=== PATIENT | female | born 1985 | race Caucasian/White ===

== ENCOUNTER 2016-10-02 12:00 | Emergency (ER) | payer SELFPAY ==
[2016-10-02] MEDS ORDERED: ATIVAN ONE (12:06)
[2016-10-02] MEDS ORDERED: ATIVAN IV ONE (12:11)
[2016-10-02] MEDS ORDERED: ZOFRAN IV ONE (12:21)
[2016-10-02] MEDS ORDERED: KEPPRA 1,000 MG/NS 0.75% 100ML 1,000 MG/100 ML BAG IV ONE (14:14)
[2016-10-02] MEDS ORDERED: ULTRAM ONE (14:34)
--- NOTE | 2016-10-02 14:40 | Emergency Department Report ---
HPI - General Chief Complaint: Seizure Time Seen by Provider: 10/02/16 14:11 - HPI HPI: Chief complaint: Seizure HPI: Patient is a 31-year-old female with history of seizure disorder. Patient states she had a seizure yesterday and was seen at another hospital and given IV Dilantin and Keppra. Patient has not refilled her medications. Patient is on 750 Keppra twice a day and 300 mg of Dilantin daily. Patient complains of left mandibular pain. Previous admissions to the ER patient had TMJ dislocations that resolved spontaneously with sedation and would re-dislocate upon awakening. There has been no dislocation today Mode of arrival: [private car] Source: [Patient] [old chart] Began: According to the nursing notes seizing in the car and brought in and given Ativan with discontinuation of the seizure. Possible repeat seizure just prior to my evaluation the patient is not post ictal so I doubt that she had another seizure. Nurse states she heard the stretcher rattling. Duration: Unable to assess Context: See above Quality: Dull pain to the jaw Severity: 10 out of 10 Improved with: Ativan Worsened with: Not taking her medications Associated signs and symptoms: Denies fever, nausea, vomiting, dysuria. 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 x4 - Social History Smoking Status: Current Every Day Smoker Substance Use Type: Alcohol - Medications Home Medications: Home Medications Medication Instructions Recorded Confirmed Last Taken Type levETIRAcetam [Keppra TAB] 750 mg PO BID 08/11/15 10/02/16 10/01/16 History Phenytoin [Dilantin] 300 mg PO QHS 02/16/16 10/02/16 10/01/16 History ED Review of Systems ROS: Stated complaint: SEIZURE Other details as noted in HPI ROS Constitutional: No fever ENT: No uri symptoms Cardiovascular: No chest pain Respiratory: No sob or cough GI: No nausea vomiting or diarrhea : No dysuria frequency or urgency, Skin: No rash Neuro: No focal weakness or numbness Psych: No depression Ilya/lymph: No edema Physical Exam - Physical Exam Vital Signs: Vital Signs 10/02/16 12:00 Temperature 98.3 F Pulse Rate 93 H Blood Pressure 104/54 O2 Sat by Pulse 100 Oximetry Physical Exam: GENERAL: The patient is well-developed well-nourished . HEENT: Normocephalic. Atraumatic. Extraocular motions are intact. Patient has moist mucous membranes. There does not appear to be any trauma to the patient's mouth and no erythema or swelling. Full range of motion of patient's TMJ NECK: Supple. No meningitic signs are noted. There is no adenopathy noted. CHEST/LUNGS: Clear to auscultation. There is no respiratory distress noted. HEART/CARDIOVASCULAR: Regular. There is no tachycardia. There is no gallop rub or murmur. ABDOMEN: Abdomen is soft, nontender. Patient has normal bowel sounds. There is no abdominal distention. SKIN: There is no rash. There is no edema. There is no diaphoresis. NEURO: The patient is awake, alert, and oriented. The patient is cooperative. The patient has no focal neurologic deficits. The patient has normal speech. MUSCULOSKELETAL: There is no tenderness or deformity. There is no limitation range of motion. There is no evidence of acute injury. ED Course Vital Signs 10/02/16 12:00 Temperature 98.3 F Pulse Rate 93 H Blood Pressure 104/54 O2 Sat by Pulse 100 Oximetry - Reevaluation(s) Reevaluation #1: 10/02/16 14:40 Patient will be given a gram of Keppra IV and 300 mg of Dilantin by mouth. Patient will be encouraged to fill her prescriptions and take her medications. ED Medical Decision Making - Lab Data Laboratory Tests 10/02/16 12:35 Phenytoin 7.4 L Critical care attestation.: If time is entered above; I have spent that time in minutes in the direct care of this critically ill patient, excluding procedure time. ED Disposition Clinical Impression: Seizure Disposition: DISCHARGED TO HOME OR SELFCARE Is pt being admited?: No Does the pt Need Aspirin: No Condition: Stable Instructions: Epilepsy (ED) Referrals: PRIMARY CARE, [Primary Care Provider] - 3-5 Days Time of Disposition: 14:42
[2016-10-02] MEDS ORDERED: DILANTIN ONE (14:43)
[2016-10-02] MEDS ORDERED: BENADRYL PO ONE ×2 (14:44→15:15)
[2016-10-02] MEDS ORDERED: DILANTIN PO ONE (14:45)
[2016-10-02 15:07] VITALS: BP 111/78
[2016-10-02] MEDS ORDERED: ULTRAM PO ONE (15:14)
== END 2016-10-02 15:10 | disposition home or self-care (01) ==
LOC: ED 12:00
DX: R56.9 Unspecified convulsions (principal); F17.200 Nicotine dependence, unspecified, uncomplicated
CPT/HCPCS: 36415; 80177; 80185; 96365; 96375; 99284; J1953; J2060

== ENCOUNTER 2017-07-31 09:58 | Emergency (ER) | payer OTHER ==
[2017-07-31] MEDS ORDERED: ATIVAN ONE (10:14)
[2017-07-31] MEDS ORDERED: FIORICET PO ONE (10:19)
--- NOTE | 2017-07-31 10:24 | Emergency Department Report ---
HPI - General Time Seen by Provider: 07/31/17 10:12 - HPI HPI: Room 19 The patient is a 31-year-old female presenting with a chief complaint of seizure. The patient states she's had a toothache for the past 2-3 days ( approximately tooth #3). The patient states she has appointment to see her dentist 08/20/2016. The patient states she was told she had a seizure approximately 10 minutes prior to arrival. The patient states she ran out of her Keppra 2 weeks ago but she has been taking her Dilantin. 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 x4 - Family History Family history: no significant - Social History Smoking Status: Current Every Day Smoker (1/2 pack per day) Substance Use Type: None (denies illicit drug use) - Medications Home Medications: Home Medications Medication Instructions Recorded Confirmed Last Taken Type Butalb/Acetamin/Caff 50-325-40 2 tab PO Q8H #10 tablet 07/31/17 Unknown Rx [Fioricet] Phenytoin [Dilantin] 300 mg PO QHS #90 capsule.er 07/31/17 Unknown Rx levETIRAcetam [Keppra TAB] 750 mg PO BID #60 tablet 07/31/17 Unknown Rx ED Review of Systems ROS: Stated complaint: SEIZURES Other details as noted in HPI ENT: dental pain Neurological: other (seizure) Physical Exam - Physical Exam Physical Exam: GENERAL: The patient is well-developed well-nourished female lying on stretcher having pseudoseizure. Patient shaking arms and legs but stops and answer questions when distracted HEENT: Normocephalic. Atraumatic. Extraocular motions are intact. Broken appearance of tooth #3 without surrounding edema or discharge NECK: Supple. Trachea midline CHEST/LUNGS: Clear to auscultation. There is no respiratory distress noted. HEART/CARDIOVASCULAR: Regular. There is no tachycardia. There is no gallop rub or murmur. ABDOMEN: Abdomen is soft, nontender. Patient has normal bowel sounds. There is no abdominal distention. SKIN: There is no rash. There is no edema. There is no diaphoresis. NEURO: The patient is awake, alert, and oriented. The patient is cooperative. The patient has no focal neurologic deficits. The patient has normal speech. Cranial nerves II through XII grossly intact, no drift MUSCULOSKELETAL: There is no evidence of acute injury. ED Medical Decision Making - Lab Data Result diagrams: 07/31/17 10:23 Laboratory Tests 07/31/17 07/31/17 07/31/17 10:23 10:23 10:23 Sodium 140 Potassium 4.2 Chloride 102.6 Carbon Dioxide 20 L Anion Gap 22 BUN 18 H Creatinine 0.7 Estimated GFR > 60 BUN/Creatinine Ratio 26 Glucose 99 Calcium 9.0 Magnesium 2.00 HCG, Qual Negative Phenytoin 0.8 L - Differential Diagnosis dental pain, seizures, pseudoseizures Critical care attestation.: If time is entered above; I have spent that time in minutes in the direct care of this critically ill patient, excluding procedure time. ED Disposition Clinical Impression: Pain, dental, Epilepsy, Subtherapeutic serum dilantin level Disposition: - TO HOME OR SELFCARE Is pt being admited?: No Does the pt Need Aspirin: No Condition: Stable Instructions: Toothache (ED) Additional Instructions: Return to the emergency department immediately should you develop worsening symptoms, fever, inability to tolerate food or liquid or any other concerns. Prescriptions: Butalb/Acetamin/Caff 50-325-40 [Fioricet] 2 tab PO Q8H #10 tablet levETIRAcetam [Keppra TAB] 750 mg PO BID #60 tablet Phenytoin [Dilantin] 300 mg PO QHS #90 capsule.er Referrals: MARIIA SUERO MD [Primary Care Provider] - 3-5 Days HUMBERTO LINARES MD [Staff Physician] - 3-5 Days [facility] [Outside] - [place] Time of Disposition: 11:37
[2017-07-31 10:40] VITALS: BP 138/69
[2017-07-31 11:03] LABS: BUN/Creatinine Ratio 26; Blood Urea Nitrogen 18 mg/dL (7-17); Hemolysis Index 3
[2017-07-31] MEDS ORDERED: DILANTIN PO ONE (11:35)
[2017-07-31] MEDS ORDERED: ZOFRAN ODT PO ONE (11:36)
== END 2017-07-31 12:48 | disposition home or self-care (01) ==
LOC: ED 09:58
DX: G40.909 Epilepsy, unspecified, not intractable, without status epilepticus (principal); K08.89 Other specified disorders of teeth and supporting structures; R79.1 Abnormal coagulation profile; F17.200 Nicotine dependence, unspecified, uncomplicated
CPT/HCPCS: 36415; 80048; 80185; 83735; 84703; 99283; J2060; Q0162

== ENCOUNTER 2017-09-07 08:37 | Emergency (ER) | payer SELFPAY ==
[2017-09-07] MEDS ORDERED: KEPPRA 1,000 MG/NS 0.75% 100ML 1,000 MG/100 ML BAG IV ONE (08:49)
--- NOTE | 2017-09-07 08:50 | Emergency Department Report ---
ED Seizure HPI - General Chief Complaint: Seizure Stated Complaint: SEIZURE Time Seen by Provider: 09/07/17 08:48 Source: patient, RN notes reviewed, old records reviewed Limitations: No Limitations - History of Present Illness Initial Comments: This is a 32-year-old female, the patient is previously unknown to this provider , patient has a past medical history of seizure disorder, dentalgia, as per old medical records supposed to be on Keppra, 750 mg twice daily, Dilantin, 300 mg each night. Patient reports compliance with her medications. She is brought to the hospital in private vehicle with friends and family for breakthrough seizure. It has since resolved. Patient has mild headache which is throbbing, global, not sudden or thunderclap in nature, not maximal in intensity, not the worse headache of her life. Patient reports that she only gets headaches when she has a seizure. She also complains of subacute dentalgia, over tooth #1, 2, and most of the maxillary teeth. Patient reports having had this pain for a while, she went and saw a dentist, had a dental extraction recommended, and indicated she cannot afford the copayment. Her symptoms/seizure have resolved. She denies chest pain, abdominal pain, shortness of breath, weakness, numbness, ataxia, urinary symptoms. MD Complaint: seizure -: Sudden Description of Episode: loss of consciousness, tonic-clonic movement -: second(s) Witnessed:: Yes Trauma: No Seizure History: known seizure disorder Place: home Possible Precipitating Event: none, fever Associated Symptoms: denies: chest pain, confusion, cough, diaphoresis, fever/ chills, loss of appetite, malaise, rash, shortness of breath, syncope, weakness , tongue injury, shoulder dislocation - Related Data Previous Rx's Medication Instructions Recorded Last Taken Type Butalb/Acetamin/Caff 50-325-40 2 tab PO Q8H #10 tablet 07/31/17 Unknown Rx [Fioricet] Phenytoin [Dilantin] 300 mg PO QHS #90 capsule.er 07/31/17 Unknown Rx Chlorhexidine Mouthwash [Peridex] 15 ml MM BID #1 bottle 09/07/17 Unknown Rx levETIRAcetam [Keppra TAB] 750 mg PO BID #60 tablet 09/07/17 Unknown Rx Allergies Allergy/AdvReac Type Severity Reaction Status Date / Time aspirin Allergy Swelling Verified 03/22/14 17:29 fosphenytoin sodium Allergy Itching Verified 03/22/14 17:29 [From Cerebyx] ED Review of Systems ROS: Stated complaint: SEIZURE Other details as noted in HPI ED Past Medical Hx - Past Medical History Hx Seizures: Yes 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 x4 - Social History Smoking Status: Current Every Day Smoker (1/2 pack per day) Substance Use Type: None (denies illicit drug use) - Medications Home Medications: Home Medications Medication Instructions Recorded Confirmed Last Taken Type Butalb/Acetamin/Caff 50-325-40 2 tab PO Q8H #10 tablet 07/31/17 Unknown Rx [Fioricet] Phenytoin [Dilantin] 300 mg PO QHS #90 capsule.er 07/31/17 Unknown Rx Chlorhexidine Mouthwash [Peridex] 15 ml MM BID #1 bottle 09/07/17 Unknown Rx levETIRAcetam [Keppra TAB] 750 mg PO BID #60 tablet 09/07/17 Unknown Rx ED Physical Exam - General General appearance: alert, in no apparent distress - Head Head exam: Present: atraumatic, normocephalic - Eye Eye exam: Present: normal appearance, PERRL, EOMI. Absent: nystagmus - ENT ENT exam: Present: normal exam, normal orophraynx, mucous membranes moist, normal external ear exam, other (poor dentition. No stridor or dysphonia no abscesses noted) - Neck Neck exam: Present: normal inspection, full ROM - Respiratory Respiratory exam: Present: normal lung sounds bilaterally. Absent: respiratory distress - Cardiovascular Cardiovascular Exam: Present: regular rate, normal rhythm, normal heart sounds. Absent: systolic murmur, diastolic murmur, rubs, gallop - GI/Abdominal GI/Abdominal exam: Present: soft, normal bowel sounds. Absent: distended, tenderness, guarding, rebound, rigid, pulsatile mass - Extremities Exam Extremities exam: Present: normal inspection, full ROM, normal capillary refill. Absent: pedal edema, joint swelling, calf tenderness - Back Exam Back exam: Present: normal inspection, full ROM. Absent: tenderness, CVA tenderness (R), paraspinal tenderness - Neurological Exam Neurological exam: Present: alert, oriented X3, CN II-XII intact, normal gait, other (Extraocular movements intact. Tongue midline. No facial droop. Facial sensation intact to light touch in the V1, V2, V3 distribution bilaterally. 5 and 5 strength in 4 extremities.. Sensation is intact to light touch in 4 extremities.). Absent: motor sensory deficit - Psychiatric Psychiatric exam: Present: anxious - Skin Skin exam: Present: warm, dry, intact, normal color. Absent: rash ED Course Vital Signs 09/07/17 09:05 Pulse Rate 73 Respiratory 19 Rate Blood Pressure 114/73 O2 Sat by Pulse 100 Oximetry ED Medical Decision Making - Lab Data Vital Signs 09/07/17 09:05 Pulse Rate 73 Respiratory 19 Rate Blood Pressure 114/73 O2 Sat by Pulse 100 Oximetry - Medical Decision Making Differential diagnosis, including but not limited to: Dentalgia, breakthrough seizure, medication noncompliance Assessment and plan: 32-year-old female with breakthrough seizure, now clinically sober, with chronic dentalgia, has a GCS of 15, with an NIH score of 0. This provider recommended laboratory studies, IV bolus of Keppra. Patient is declining. Patient is going to sign out AGAINST MEDICAL ADVICE. Risks of leaving, including , disability, paralysis, permanent loss of quality of life were reviewed with the patient who verbalized understanding, and understands that she can return to the ER right away if and when she changes her mind. Patient will be given chlorhexidine for her dentalgia, she will be given a list of low-cost dental clinics in the state, her Keppra prescription will be refilled, conversation for discharge AGAINST MEDICAL ADVICE witnessed by RN Lita Dorsey. Patient understands that she can return to the ER right away if and when she changes her mind. Patient further endorses that she is not . Critical care attestation.: If time is entered above; I have spent that time in minutes in the direct care of this critically ill patient, excluding procedure time. ED Disposition Clinical Impression: History of seizure, Dentalgia Disposition: LEFT AGAINST MED ADVICE Is pt being admited?: No Does the pt Need Aspirin: No Condition: Undetermined Instructions: Recurrent Seizures Adult (ED) Additional Instructions: As we discussed, you have left the hospital/emergency room AGAINST MEDICAL ADVICE. By leaving, you risked , disability, paralysis, permanent loss of quality of life. The ER is open 24 hours a day, 7 days a week. It never closes. Please return to the emergency room right away if and when you change your mind. If you decide not to return to the emergency room, please follow-up with the listed physician referrals as soon as possible. Do not drive her car or operate motor vehicles and was cleared to do so by a primary care doctor or neurology specialist. Referrals: PRIMARY MD IVANNA [Primary Care Provider] - 3-5 Days ZOHREH ZALDIVAR MD [Referring] - 3-5 Days HUMBERTO LINARES MD [Staff Physician] - 3-5 Days [facility] [Outside] - 3-5 Days
[2017-09-07 09:09] VITALS: BP 114/73
[2017-09-07] MEDS ORDERED: KEPPRA PO ONE (09:22)
[2017-09-07 09:42] LABS: Bilirubin,Urine NEG (Negative); Blood,Urine MOD (Negative); Color,Urine Yellow (Yellow); Mucus,Urine FEW /HPF; Nitrite,Urine NEG (Negative); Protein,Urine <15 mg/dL mg/dL (Negative); Urobilinogen,Urine < 2.0 mg/dL (<2.0)
[2017-09-07 10:06] LABS: Amphetamine Screen,Urine PRESUMPTIVE NEGATIVE; Benzodiazepines Screen,Urine PRESUMPTIVE NEGATIVE; Cocaine Screen,Urine PRESUMPTIVE NEGATIVE; Methadone Screen,Urine PRESUMPTIVE NEGATIVE; Opiate Screen,Urine PRESUMPTIVE NEGATIVE
[2017-09-07 10:20] LABS: Cannabinoid Screen,Urine PRESUMPTIVE POSITIVE
== END 2017-09-07 09:50 | disposition left against medical advice (07) ==
LOC: ED 08:37
DX: K08.89 Other specified disorders of teeth and supporting structures (principal); G40.909 Epilepsy, unspecified, not intractable, without status epilepticus; F17.200 Nicotine dependence, unspecified, uncomplicated
CPT/HCPCS: 80307; 81001; 82962; 99283

== ENCOUNTER 2020-09-12 11:17 | Emergency (ER) | payer SELFPAY ==
--- NOTE | 2020-09-12 12:04 | Event Note ---
ED Screening Note Date of service: 09/12/20 Time: 12:01 ED Screening Note: 35-year-old female presents to the emergency room complaining of left shoulder left humerus and right index finger injury. Patient states that she had a seizure 2 days ago since she has been off of her antiseizure medicine for 1 month and 1 week. This initial assessment/diagnostic orders/clinical plan/treatment(s) is/are subject to change based on patients health status, clinical progression and re- assessment by fellow clinical providers in the ED. Further treatment and workup at subsequent clinical providers discretion. Patient/guardian urged not to elope from the ED as their condition may be serious if not clinically assessed and managed. Initial orders include:
--- NOTE | 2020-09-12 12:40 | XRay Report ---
Left shoulder-3 views Left humerus-4 views Left hand-2 views INDICATION: Left shoulder injury status post seizure. COMPARISON: None. IMPRESSION: No acute osseous or soft tissue abnormality in the left upper extremity. No significa nt DJD. Signer Name: Pravin Upton MD Signed: 09/12/2020 12:32 PM Workstation Name: [id number]
--- NOTE | 2020-09-12 12:40 | XRay Report ---
Left shoulder-3 views Left humerus-4 views Left hand-2 views INDICATION: Left shoulder injury status post seizure. COMPARISON: None. IMPRESSION: No acute osseous or soft tissue abnormality in the left upper extremity. No significa nt DJD. Signer Name: Pravin Upton MD Signed: 09/12/2020 12:32 PM Workstation Name: [id number]
--- NOTE | 2020-09-12 12:40 | XRay Report ---
Left shoulder-3 views Left humerus-4 views Left hand-2 views INDICATION: Left shoulder injury status post seizure. COMPARISON: None. IMPRESSION: No acute osseous or soft tissue abnormality in the left upper extremity. No significa nt DJD. Signer Name: Pravin Upton MD Signed: 09/12/2020 12:32 PM Workstation Name: [id number]
[2020-09-12 13:44] LABS: Basophils % (Auto) 0.4 % (0.0-1.8); Eosinophils # (Auto) 0.2 K/mm3 (0.0-0.4); Eosinophils % (Auto) 2.4 % (0.0-4.3); Hematocrit 34.5 % (30.3-42.9); Hemoglobin 11.7 gm/dl (10.1-14.3); Lymphocytes # (Auto) 1.9 K/mm3 (1.2-5.4); Lymphocytes % (Auto) 29.9 % (13.4-35.0); Mean Corpuscular HGB Conc 34 % (30-34); Mean Corpuscular Volume 93 fl (79-97); Monocytes # (Auto) 0.5 K/mm3 (0.0-0.8); Monocytes % (Auto) 8.3 % (0.0-7.3); Platelet Count 221 K/mm3 (140-440); Red Blood Count 3.73 M/mm3 (3.65-5.03); Red Cell Distribution Width 15.6 % (13.2-15.2)
[2020-09-12] MEDS ORDERED: levETIRAcetam 1000 MG/NS 0.75% 1,000 MG/100 ML BAG IV ONE (13:44)
[2020-09-12] MEDS ORDERED: MORPHINE 4 MG/1 ML INJ IV ONE (13:44)
[2020-09-12] MEDS ORDERED: ONDANSETRON 4 MG/2 ML INJ IV ONE (13:44)
--- NOTE | 2020-09-12 13:45 | Emergency Department Report ---
ED Seizure HPI - General Chief Complaint: Seizure Stated Complaint: SEZUIRE/LFT ARM PAIN/RT FINGER Time Seen by Provider: 09/12/20 13:40 Source: patient Mode of arrival: Ambulatory Limitations: No Limitations - History of Present Illness Initial Comments: Patient is 35 years old female with history of seizure. Patient stated that she is taking Keppra 750 mg and Dilantin 300 mg daily. Patient presented to the ER complaining of left shoulder pain and left hand pain after she had a seizure 2 days ago. Patient stated that she is out of her medication for the last week. Patient denied any head injury, neck injury, chest injury, abdominal injury or any other extremities injury. Patient also denied any fever or chills. MD Complaint: seizure -: days(s) (2) Description of Episode: loss of consciousness, tonic-clonic movement Witnessed:: Yes Trauma: Yes Seizure History: known seizure disorder Place: home Possible Precipitating Event: none Associated Symptoms: denies other symptoms Treatments Prior to Arrival: none - Related Data Previous Rx's Medication Instructions Recorded Last Taken Type Butalb/Acetamin/Caff 50-325-40 2 tab PO Q8H #10 tablet 07/31/17 Unknown Rx [Fioricet 50-325-40] Phenytoin [Dilantin] 300 mg PO QHS #90 capsule.er 07/31/17 Unknown Rx Chlorhexidine Mouthwash [Peridex] 15 ml MM BID #1 bottle 09/07/17 Unknown Rx levETIRAcetam [Keppra TAB] 750 mg PO BID #60 tablet 09/07/17 Unknown Rx Allergies Allergy/AdvReac Type Severity Reaction Status Date / Time aspirin Allergy Swelling Verified 03/22/14 17:29 fosphenytoin sodium Allergy Itching Verified 03/22/14 17:29 [From Cerebyx] ED Review of Systems ROS: Stated complaint: SEZUIRE/LFT ARM PAIN/RT FINGER Other details as noted in HPI Comment: All other systems reviewed and negative Constitutional: denies: chills, fever Cardiovascular: denies: chest pain Gastrointestinal: denies: abdominal pain Musculoskeletal: arthralgia, myalgia. 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 x4 - Social History Smoking Status: Current Every Day Smoker Substance Use Type: None - Medications Home Medications: Home Medications Medication Instructions Recorded Confirmed Last Taken Type Butalb/Acetamin/Caff 50-325-40 2 tab PO Q8H #10 tablet 07/31/17 Unknown Rx [Fioricet 50-325-40] Phenytoin [Dilantin] 300 mg PO QHS #90 capsule.er 07/31/17 Unknown Rx Chlorhexidine Mouthwash [Peridex] 15 ml MM BID #1 bottle 09/07/17 Unknown Rx levETIRAcetam [Keppra TAB] 750 mg PO BID #60 tablet 09/07/17 Unknown Rx ED Physical Exam - General Limitations: No Limitations General appearance: alert, in no apparent distress - Head Head exam: Present: atraumatic, normocephalic, normal inspection - Eye Eye exam: Present: normal appearance - ENT ENT exam: Present: normal exam, normal orophraynx, mucous membranes moist - Neck Neck exam: Present: normal inspection, full ROM. Absent: tenderness, meningismus, lymphadenopathy, thyromegaly - Respiratory Respiratory exam: Present: normal lung sounds bilaterally - Cardiovascular Cardiovascular Exam: Present: regular rate, normal rhythm, normal heart sounds - GI/Abdominal GI/Abdominal exam: Present: soft, normal bowel sounds. Absent: distended, tenderness, guarding, rebound, rigid, organomegaly, mass, bruit, pulsatile mass, hernia - Extremities Exam Extremities exam: Present: normal inspection, full ROM, tenderness, normal capillary refill. Absent: pedal edema, joint swelling, calf tenderness - Back Exam Back exam: Present: normal inspection, full ROM. Absent: CVA tenderness (R), CVA tenderness (L), paraspinal tenderness, vertebral tenderness - Neurological Exam Neurological exam: Present: alert, oriented X3, CN II-XII intact, normal gait, reflexes normal. Absent: motor sensory deficit - Psychiatric Psychiatric exam: Present: normal mood - Skin Skin exam: Present: warm, intact, normal color ED Course Vital Signs 09/12/20 11:55 Temperature 97.5 F L Pulse Rate 83 Respiratory 16 Rate Blood Pressure 138/93 O2 Sat by Pulse 100 Oximetry ED Medical Decision Making - Lab Data Result diagrams: 09/12/20 13:24 - Radiology Data Radiology results: report reviewed - Medical Decision Making Patient is 35 years old female with history of seizure. Patient stated that she is taking Keppra 750 mg and Dilantin 300 mg daily. Patient presented to the ER complaining of left shoulder pain and left hand pain after she had a seizure 2 days ago. Patient stated that she is out of her medication for the last week. Patient denied any head injury, neck injury, chest injury, abdominal injury or any other extremities injury. Patient also denied any fever or chills. Patient received 1 g of Keppra in the emergency room. Labs reviewed and is unremarkable. X-ray of the left shoulder and left hand showed no acute fracture or dislocation. Patient given prescription for Keppra and Dilantin and advised to follow-up with her neurologist in the next 2 to 3 days and to return to the ER if she develop any new symptoms. Critical care attestation.: If time is entered above; I have spent that time in minutes in the direct care of this critically ill patient, excluding procedure time. ED Disposition Clinical Impression: Seizure, Shoulder contusion Disposition: TO HOME OR SELFCARE Is pt being admited?: No Condition: Stable Instructions: Seizure, Adult, Contusion Referrals: PRIMARY CARE, [Referring] - 3-5 Days
[2020-09-12 14:02] LABS: Alanine Aminotransferase 13 units/L (7-56); Albumin 4.2 g/dL (3.9-5); BUN/Creatinine Ratio 14; Blood Urea Nitrogen 10 mg/dL (7-17); Calcium 8.9 mg/dL (8.4-10.2); Hemolysis Index 4
[2020-09-12] MEDS ORDERED: diphenhydrAMINE 50 MG/ML VIAL ONE (14:07)
[2020-09-12] MEDS ORDERED: diphenhydrAMINE 50 MG/ML VIAL IV ONE (14:08)
[2020-09-12] MEDS ORDERED: fentaNYL 250 MCG/5 ML INJ IV ONE ×2 (15:59→17:02)
[2020-09-12] MEDS ORDERED: fentaNYL 100 MCG/2 ML INJ IV SCH (16:00)
[2020-09-12 17:09] VITALS: BP 106/82
== END 2020-09-12 17:10 | disposition home or self-care (01) ==
LOC: ED 11:17
DX: S40.012A Contusion of left shoulder, initial encounter (principal); G43.909 Migraine, unspecified, not intractable, without status migrainosus; F17.200 Nicotine dependence, unspecified, uncomplicated; Z79.899 Other long term (current) drug therapy; Z88.6 Allergy status to analgesic agent; Z88.8 Allergy status to other drugs, medicaments and biological substances; X58.XXXA Exposure to other specified factors, initial encounter; Y93.89 Activity, other specified; Y92.89 Other specified places as the place of occurrence of the external cause; Y99.8 Other external cause status
CPT/HCPCS: 36415; 73030; 73060; 73120; 80053; 84702; 85025; 96374; 96375; 96376; 99283; J1200; J1953; J2270; J2405; J3010

== ENCOUNTER 2020-09-26 06:46 | Emergency (ER) | payer SELFPAY ==
[2020-09-26 06:59] VITALS: BP 116/65
--- NOTE | 2020-09-26 07:36 | Emergency Department Report ---
ED ENT HPI - General Chief complaint: Dental/Oral Stated complaint: TOOTHACHE Time Seen by Provider: 09/26/20 07:28 Source: patient Mode of arrival: Ambulatory Limitations: No Limitations - History of Present Illness Initial comments: 35-year-old male female presents emerged department complaining of a 2-day history of reemerging left upper molar dental pain which is worse with palpation and range of motion. She reports some sweats but no fever or chills reports no bleeding. There is some nausea and vomiting as well. Also has been scratching a sore throat as it is difficult to close her mouth due to the pain of the teeth touching MD complaint: tooth pain -: Gradual, days(s) (2) Location: tooth # Severity: mild, moderate Quality: dull Consistency: constant Worsens with: eating, movement Associated Symptoms: toothache - Related Data Previous Rx's Medication Instructions Recorded Last Taken Type Butalb/Acetamin/Caff 50-325-40 2 tab PO Q8H #10 tablet 07/31/17 Unknown Rx [Fioricet 50-325-40] Phenytoin [Dilantin] 300 mg PO QHS #90 capsule.er 07/31/17 Unknown Rx Chlorhexidine Mouthwash [Peridex] 15 ml MM BID #1 bottle 09/07/17 Unknown Rx levETIRAcetam [Keppra TAB] 750 mg PO BID #60 tablet 09/07/17 Unknown Rx Ondansetron [Zofran Odt] 4 mg PO Q8HR PRN #14 tab.rapdis 09/12/20 Unknown Rx Phenytoin [Dilantin] 300 mg PO QHS #60 capsule 09/12/20 Unknown Rx levETIRAcetam [Keppra TAB] 750 mg PO BID #120 tablet 09/12/20 Unknown Rx traMADoL [Ultram 50 MG tab] 50 mg PO Q4HR PRN #14 tablet 09/12/20 Unknown Rx Amoxicillin [Amoxicillin TAB] 875 mg PO BID #20 tablet 09/26/20 Unknown Rx Chlorhexidine Mouthwash [Peridex] 15 ml MM BID #1 bottle 09/26/20 Unknown Rx Lidocaine Viscous 2% 5 ml MM Q3H PRN #120 udc 09/26/20 Unknown Rx traMADoL [Ultram] 50 mg PO Q6HR PRN #20 tablet 09/26/20 Unknown Rx Allergies Allergy/AdvReac Type Severity Reaction Status Date / Time aspirin Allergy Swelling Verified 09/26/20 06:59 fosphenytoin sodium Allergy Itching Verified 09/26/20 06:59 [From Cerebyx] ED Dental HPI - General Chief complaint: Dental/Oral Stated complaint: TOOTHACHE Time Seen by Provider: 09/26/20 07:28 Source: patient Mode of arrival: Ambulatory Limitations: No Limitations - Related Data Previous Rx's Medication Instructions Recorded Last Taken Type Butalb/Acetamin/Caff 50-325-40 2 tab PO Q8H #10 tablet 07/31/17 Unknown Rx [Fioricet 50-325-40] Phenytoin [Dilantin] 300 mg PO QHS #90 capsule.er 07/31/17 Unknown Rx Chlorhexidine Mouthwash [Peridex] 15 ml MM BID #1 bottle 09/07/17 Unknown Rx levETIRAcetam [Keppra TAB] 750 mg PO BID #60 tablet 09/07/17 Unknown Rx Ondansetron [Zofran Odt] 4 mg PO Q8HR PRN #14 tab.rapdis 09/12/20 Unknown Rx Phenytoin [Dilantin] 300 mg PO QHS #60 capsule 09/12/20 Unknown Rx levETIRAcetam [Keppra TAB] 750 mg PO BID #120 tablet 09/12/20 Unknown Rx traMADoL [Ultram 50 MG tab] 50 mg PO Q4HR PRN #14 tablet 09/12/20 Unknown Rx Amoxicillin [Amoxicillin TAB] 875 mg PO BID #20 tablet 09/26/20 Unknown Rx Chlorhexidine Mouthwash [Peridex] 15 ml MM BID #1 bottle 09/26/20 Unknown Rx Lidocaine Viscous 2% 5 ml MM Q3H PRN #120 udc 09/26/20 Unknown Rx traMADoL [Ultram] 50 mg PO Q6HR PRN #20 tablet 09/26/20 Unknown Rx Allergies Allergy/AdvReac Type Severity Reaction Status Date / Time aspirin Allergy Swelling Verified 09/26/20 06:59 fosphenytoin sodium Allergy Itching Verified 09/26/20 06:59 [From Cerebyx] ED Review of Systems ROS: Stated complaint: TOOTHACHE Other details as noted in HPI Comment: All other systems reviewed and negative ED Past Medical Hx - Past Medical History Hx Seizures: Yes 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 x4 - Social History Smoking Status: Current Every Day Smoker Substance Use Type: Alcohol - Medications Home Medications: Home Medications Medication Instructions Recorded Confirmed Last Taken Type Butalb/Acetamin/Caff 50-325-40 2 tab PO Q8H #10 tablet 07/31/17 Unknown Rx [Fioricet 50-325-40] Phenytoin [Dilantin] 300 mg PO QHS #90 capsule.er 07/31/17 Unknown Rx Chlorhexidine Mouthwash [Peridex] 15 ml MM BID #1 bottle 09/07/17 Unknown Rx levETIRAcetam [Keppra TAB] 750 mg PO BID #60 tablet 09/07/17 Unknown Rx Ondansetron [Zofran Odt] 4 mg PO Q8HR PRN #14 tab.rapdis 09/12/20 Unknown Rx Phenytoin [Dilantin] 300 mg PO QHS #60 capsule 09/12/20 Unknown Rx levETIRAcetam [Keppra TAB] 750 mg PO BID #120 tablet 09/12/20 Unknown Rx traMADoL [Ultram 50 MG tab] 50 mg PO Q4HR PRN #14 tablet 09/12/20 Unknown Rx Amoxicillin [Amoxicillin TAB] 875 mg PO BID #20 tablet 09/26/20 Unknown Rx Chlorhexidine Mouthwash [Peridex] 15 ml MM BID #1 bottle 09/26/20 Unknown Rx Lidocaine Viscous 2% 5 ml MM Q3H PRN #120 udc 09/26/20 Unknown Rx traMADoL [Ultram] 50 mg PO Q6HR PRN #20 tablet 09/26/20 Unknown Rx ED Physical Exam - General Limitations: No Limitations General appearance: alert, in no apparent distress - Head Head exam: Present: atraumatic, normocephalic - Eye Eye exam: Present: normal appearance, PERRL, EOMI - ENT ENT exam: Present: mucous membranes moist, other (Several dental caries and erosion there is some pain with palpation to the left upper molar which is severely eroded and slightly impacted with some) - Neck Neck exam: Present: normal inspection - Respiratory Respiratory exam: Present: normal lung sounds bilaterally. Absent: respiratory distress, wheezes, rales, rhonchi - Cardiovascular Cardiovascular Exam: Present: regular rate, normal rhythm. Absent: systolic murmur, diastolic murmur, rubs, gallop - GI/Abdominal GI/Abdominal exam: Present: soft, normal bowel sounds - Extremities Exam Extremities exam: Present: normal inspection - Back Exam Back exam: Present: normal inspection. Absent: CVA tenderness (R), CVA tenderness (L) - Neurological Exam Neurological exam: Present: alert, oriented X3, CN II-XII intact - Psychiatric Psychiatric exam: Present: normal affect, normal mood - Skin Skin exam: Present: warm, dry, intact, normal color. Absent: rash ED Course Vital Signs 09/26/20 06:57 Temperature 98.2 F Pulse Rate 68 Respiratory 20 Rate Blood Pressure 116/65 O2 Sat by Pulse 100 Oximetry Critical care attestation.: If time is entered above; I have spent that time in minutes in the direct care of this critically ill patient, excluding procedure time. ED Disposition Clinical Impression: Dentalgia Disposition: DC-[id number] TO HOME OR SELFCARE Is pt being admited?: No Does the pt Need Aspirin: No Condition: Stable Instructions: Acute Pain, Adult, Preventive Dental Care, Adult, Tooth Injuries
[2020-09-26] MEDS ORDERED: HYDROcodone/ACETAMINOPHEN 5-325 MG TAB PO STA (07:40)
== END 2020-09-26 07:46 | disposition home or self-care (01) ==
LOC: ED 06:46
DX: K08.89 Other specified disorders of teeth and supporting structures (principal); F17.200 Nicotine dependence, unspecified, uncomplicated; Z88.8 Allergy status to other drugs, medicaments and biological substances; Z79.899 Other long term (current) drug therapy; Z86.69 Personal history of other diseases of the nervous system and sense organs; Z98.890 Other specified postprocedural states
CPT/HCPCS: 99282